=== PATIENT | female | born 1935 | race Caucasian/White ===

== ENCOUNTER 2020-12-20 20:00 | Observation (INO) ==
[2020-12-21] MEDS ORDERED: Ondansetron 4 MG/2 ML VIAL IVP PRN (00:47)
[2020-12-21] MEDS ORDERED: Naloxone 0.4 MG/ML INJ IVP PRN (00:47)
[2020-12-21] MEDS ORDERED: Melatonin 3 MG TABLET PO PRN (00:47)
[2020-12-21] MEDS ORDERED: Nitroglycerin 0.4 MG TAB.SUBL SL PRN (00:48)
[2020-12-21] MEDS ORDERED: Morphine Sulfate 2 MG/ML SYRINGE IVP PRN (02:11)
[2020-12-21] MEDS ORDERED: Perflutren Lipid Microsphere 1.3 ML in 0.9 % Sodium Chloride 8.7 ML IVP PRN (02:13)
[2020-12-21 03:05] LABS: Hematocrit 40.8 % (35.3-44.9); Hemoglobin 13.5 g/dL (11.5-15.4); Mean Corpuscular HGB Conc 33.1 g/dL (31.6-35.5); Mean Corpuscular Volume 93.6 fL (83.0-100.0); Mean Platelet Volume 11.6 fL (9.4-12.4); Platelet Count 230 K/mcL (140-400); Red Blood Count 4.36 M/mcL (3.82-4.97); Red Cell Distribution Width 13.3 % (11.5-14.5); White Blood Count 7.8 K/mcL (4.3-11.1)
[2020-12-21 03:24] LABS: Troponin I 0.04 ng/mL (< 0.04)
[2020-12-21 03:38] LABS: BUN/Creatinine Ratio 15 (6-26); Blood Urea Nitrogen 11 mg/dL (8-23); Calcium 9.1 mg/dL (8.6-10.3); Carbon Dioxide 26 mEq/L (23-29); Chloride 106 mEq/L (98-107); Glucose 104 mg/dL (70-105); Osmolality,Calculated 292 (280-300); Potassium 3.7 mEq/L (3.5-5.1); Sodium 141 mEq/L (136-145); eGFR For African Americans > 60 (> 60); eGFR For Non-African Americans > 60 (> 60)
[2020-12-21] MEDS: *HR* Heparin 5,000 UNIT/ML VIAL SQ SCH ×3 (05:56→22:16)
[2020-12-21] MEDS ORDERED: Isovue-370 500 ML BOTTLE IVP ONE (06:27)
[2020-12-21] MEDS: Aspirin Enteric Coated 81 MG Tablet PO SCH (08:52)
[2020-12-21] MEDS: Acetaminophen 325 MG TABLET PO PRN ×2 (14:42→22:39)
[2020-12-22] MEDS ORDERED: Regadenoson 0.4 MG/5 ML SYRINGE IVP ONE (05:56)
[2020-12-22] MEDS: *HR* Heparin 5,000 UNIT/ML VIAL SQ SCH ×3 (06:07→22:12)
[2020-12-22 06:22] LABS: Hematocrit 40.5 % (35.3-44.9); Hemoglobin 13.2 g/dL (11.5-15.4); Mean Corpuscular HGB Conc 32.6 g/dL (31.6-35.5); Mean Corpuscular Hemoglobin 30.1 pg (28.0-33.3); Mean Corpuscular Volume 92.5 fL (83.0-100.0); Mean Platelet Volume 11.7 fL (9.4-12.4); Platelet Count 221 K/mcL (140-400); Red Blood Count 4.38 M/mcL (3.82-4.97); Red Cell Distribution Width 13.2 % (11.5-14.5); White Blood Count 4.9 K/mcL (4.3-11.1)
[2020-12-22 06:54] LABS: Chol/HDL Ratio 3.5 (0-4.9)
[2020-12-22 08:45] LABS: Magnesium 2.1 mg/dL (1.6-2.6)
[2020-12-22] MEDS: predniSONE 20 MG TABLET PO SCH (09:27)
[2020-12-22] MEDS: amLODIPine 5 MG TABLET PO SCH (09:27)
[2020-12-22] MEDS: Aspirin Enteric Coated 81 MG Tablet PO SCH (09:27)
[2020-12-22 10:44] LABS: Estimated Average Glucose 123 mg/dl; Hemoglobin A1C 5.9 %
[2020-12-22 13:26] LABS: BUN/Creatinine Ratio 23 (6-26); Blood Urea Nitrogen 13 mg/dL (8-23); Calcium 9.1 mg/dL (8.6-10.3); Carbon Dioxide 25 mEq/L (23-29); Chloride 105 mEq/L (98-107); Glucose 155 mg/dL (70-105); Osmolality,Calculated 291 (280-300); Potassium 4.1 mEq/L (3.5-5.1); Sodium 139 mEq/L (136-145); eGFR For African Americans > 60 (> 60); eGFR For Non-African Americans > 60 (> 60)
[2020-12-23] MEDS: *HR* Heparin 5,000 UNIT/ML VIAL SQ SCH ×3 (06:18→20:37)
[2020-12-23 06:29] LABS: Hematocrit 41.5 % (35.3-44.9); Hemoglobin 13.2 g/dL (11.5-15.4)
[2020-12-23 07:04] LABS: Magnesium 2.3 mg/dL (1.6-2.6); Phosphorous 2.9 mg/dL (2.7-4.5)
[2020-12-23] MEDS: predniSONE 20 MG TABLET PO SCH (08:06)
[2020-12-23] MEDS: Aspirin Enteric Coated 81 MG Tablet PO SCH (08:06)
[2020-12-23] MEDS: amLODIPine 5 MG TABLET PO SCH (08:06)
[2020-12-23] MEDS ORDERED: *HR* Midazolam HCl 2 MG/2 ML VIAL ONE (13:05)
[2020-12-23] MEDS ORDERED: 0.9 % Sodium Chloride 1,000 ML ONE ×2 (13:05→13:29)
[2020-12-23] MEDS ORDERED: *HR* Heparin 10,000 UNIT/10 ML VIAL ONE (13:05)
[2020-12-23] MEDS ORDERED: Heparin 1,000 UNITS/500 mL 500 ML ONE ×2 (13:05→13:10)
[2020-12-23] MEDS ORDERED: *HR* FentaNYL (PF) 100 MCG/2 ML VIAL ONE (13:05)
[2020-12-23] MEDS ORDERED: ISOVUE-370 200 ML INFUS..BTL ONE (13:06)
[2020-12-23] MEDS ORDERED: Nitroglycerin 1,000 MCG/5 ML VIAL IV ONE (13:06)
[2020-12-23] MEDS ORDERED: Latanoprost 2.5 ML BOTTLE BOTH EYES SCH (21:00)
[2020-12-23] MEDS ORDERED: Budesonide/Formoterol 160/4.5 1 PUFF INH IH SCH (21:00)
[2020-12-24] MEDS: *HR* Heparin 5,000 UNIT/ML VIAL SQ SCH (05:35)
[2020-12-24 07:41] VITALS: BP 143/55; PULSE 54; TEMP 97.7; O2SAT 98
[2020-12-24 08:01] LABS: Hemoglobin 12.2 g/dL (11.5-15.4)
[2020-12-24 08:24] LABS: BUN/Creatinine Ratio 36 (6-26); Blood Urea Nitrogen 20 mg/dL (8-23); Calcium 8.9 mg/dL (8.6-10.3); Carbon Dioxide 28 mEq/L (23-29); Chloride 106 mEq/L (98-107); Glucose 89 mg/dL (70-105); Magnesium 2.2 mg/dL (1.6-2.6); Osmolality,Calculated 292 (280-300); Phosphorous 2.9 mg/dL (2.7-4.5); Potassium 3.9 mEq/L (3.5-5.1); Sodium 140 mEq/L (136-145); eGFR For African Americans > 60 (> 60); eGFR For Non-African Americans > 60 (> 60)
[2020-12-24] MEDS: predniSONE 20 MG TABLET PO SCH (08:52)
[2020-12-24] MEDS: amLODIPine 5 MG TABLET PO SCH (08:52)
[2020-12-24] MEDS: Aspirin Enteric Coated 81 MG Tablet PO SCH (08:52)
== END 2020-12-24 12:23 | disposition home or self-care (01) ==
LOC: 3BNU → SUATTDRO 12-21 00:20
PROVIDERS: ADMIT Internal Medicine; ATTEND Internal Medicine